=== PATIENT | male | born 1985 | race Two or more races ===

== ENCOUNTER 2017-02-09 18:04 | Emergency (ER) | payer OTHER ==
[2017-02-09 18:12] VITALS: BMI 26.1
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
[2017-02-09] MEDS ORDERED: ULTRAM PO ONE (19:20)
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
[2017-02-09] MEDS ORDERED: ULTRAM ONE (19:36)
[2017-02-09] MEDS ORDERED: DEMEROL INJ IM ONE (19:51)
[2017-02-09] MEDS ORDERED: DEMEROL INJ ONE (19:57)
[2017-02-09 20:37] VITALS: BP 141/93
== END 2017-02-09 20:30 | disposition home or self-care (01) ==
LOC: ER 18:22
DX: S61.432A Puncture wound without foreign body of left hand, initial encounter (principal); W45.8XXA Other foreign body or object entering through skin, initial encounter; Y92.69 Other specified industrial and construction area as the place of occurrence of the external cause
CPT/HCPCS: 73130; 96372; 99282; J2175